=== PATIENT | female | born 1995 | race African-American/Black ===

== ENCOUNTER 2022-08-28 20:51 | Emergency (ER) | payer OTHER ==
[2022-08-28] MEDS ORDERED: methylPREDNISolone Sod Succ/PF 125 MG/2 ML VIAL ONE (22:00)
[2022-08-28] MEDS ORDERED: Ketorolac Tromethamine 30 MG/ML VIAL ONE (22:11)
[2022-08-28 23:02] LABS: SARS-CoV-2 NAA Rapid Test Not Detected (NotDetected)
== END 2022-08-29 00:03 | disposition home or self-care (01) ==
LOC: ERS 20:51
DX: J20.9 Acute bronchitis, unspecified (principal); Z20.822 Contact with and (suspected) exposure to COVID-19
CPT/HCPCS: 71045; 94640; 96372; J1885; J2930; J7611